=== PATIENT | male | born 1995 | race Caucasian/White ===

== ENCOUNTER → 2020-05-30 12:56 | Outpatient (BNVA) | payer BC, SELFPAY | PROVIDERS: PCP Internal Medicine; Visit Provider Urology | DX: Z76.89 Persons encountering health services in other specified circumstances (principal) ==

== ENCOUNTER 2023-06-22 08:01 | Outpatient (AMB) | payer BC, SELFPAY ==
--- NOTE | 2023-06-22 08:13 | MHC.PC.OV ---
Vital Signs 06/22/23 08:15 Height 5 ft 9 in Weight 174 lb BMI 25.7 BP 122/74 Blood Pressure Location Rt brachial Position Sitting Pulse 74 Pulse Source Pulse Oximeter Pulse Oximetry (%) 97 Oxygen Delivery Method Room Air Intake Visit Reasons: New patient-requesting physical Intake Note: pt is here for new patient, requesting physical. requesting referrals Rose Grower Required: No Accompanied by: Self / Same As Patient Allergies Sulfa (Sulfonamide Antibiotics) Allergy (Unknown, Verified 06/22/23 08:26) Hives Medication List - Last Reconciled 06/22/23 by GRACE Orellana No Known Home Meds Tobacco use date assessed: 06/22/23 Dental Screening Dental Screen Date: 06/22/23 Did you have a dental visit in the last 12 months?: Yes Did you have a dental problem in the last 6 months where you did not have access to dental care?: No Was dental information given to patient?: Patient has dentist HPI HPI Comments History of Present Illness Details Patient is a 28-year-old male here today to establish care and have his annual physical exam. He has a past medical history significant for Meniere's disease. He has a surgical history of bilateral wrist and shoulder repair. He has a chief complaint of diminished hearing in his right ear over the past 2 years. Denies any trauma to the area or any recent fevers or infections. He states that his hearing can get better or worse throughout the day. He also reports increasing episodes of numbness to his bilateral hands, specifically to his thumb 1st and 2nd finger. He states that this problem often gets worse over night, and often wakes him up every 2-3 hours. 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 He has tried using splints at night with little effect. He has had 1 COVID immunization shot 2 years prior. At the appointment today he is denying the annual influenza immunization and the COVID booster. 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 1. Little interest or pleasure in doing things: several days 2. Feeling down, depressed, or hopeless: several days 3. Trouble falling or staying asleep, or sleeping too much: several days 4. Feeling tired or having little energy: several days 5. Poor appetite or overeating: not at all 6. Feeling bad about yourself - or that you are a failure or have let yourself or your family down: more than half the days 7. Trouble concentrating on things, such as reading the newspaper or watching television: not at all 8. Moving or speaking so slowly that other people could have noticed. Or the opposite - being so fidgety or restless that you have been moving around a lot more than usual: not at all 9. Thoughts that you would be better off or of hurting yourself in some way: several days Total score: 7 Depression Screening Interpretation: Negative Depression Screening Done: Yes 93147 - PHQ-9 Billing: Yes Source: Developed by Drs. Sebastian Duff, Candice Mullins, Anmol Farris and colleagues, with an educational marquita from [employer]. Thrive Questionnaire Date Thrive assessed: 06/22/23 I am a: Patient What is your living situation today?: I have a steady place to live Within the past 12 months, did the food you bought not last and you didn't have the money to get more?: Never true Within the past 12 months, did you worry whether your food would run out before you got money to buy more?: Never true Do you have trouble paying for medicines?: No Do you have trouble getting transportation to medical appointments?: No Do you have trouble paying your heating and electricity bill?: No Do you have trouble taking care of your child, family member or friend?: No Do you have trouble with day-to-day activities such as bathing, preparing meals, shopping, managing finances, etc.?: No Are you currently unemployed and looking for a job?: No Are you interested in more education?: No Please select the resources that you would like help with: None Currently or been in a relationship where the following occur: no concerns reported AUDIT C Alcohol Use Questionnaire (AUDIT-C) 1. How often do you have a drink containing alcohol?: Monthly or less 2. How many drinks containing alcohol do you have on a typical day when you are drinking?: 5 or 6 Total Score: 3 KYA-7 AMB Questionnaire KYA-7 Date KYA - 7 assessed: 06/22/23 Feeling nervous, anxious, or on edge: 1 = Several days Not being able to stop or control worryin = Not at all Worrying too much about different things: 1 = Several days Trouble relaxin = Several days Being so restless that it is hard to sit still: 1 = Several days Becoming easily annoyed or irritable: 2 = More than half the days Feeling afraid as if something awful might happen: 0 = Not at all Total KYA-7 score (0-4 normal; 5-9 mild; 10-14 moderate; 15-21 severe): 6 Source: Developed by Drs. Sebastian Duff, Candice Mullins, Anmol Farris and colleagues, with an educational marquita from [employer]. KYA-7 Assessment Billing KYA-7 Assessment Tool: KYA-7 Assessment 73645 Review of Systems Const Details: Constitutional : No Weight loss, No Fever, No Chills, Admits decreased energy. ENT/Mouth : No sore throat, No Rhinorrhea. Admits diminished hearing in right ear. Eyes: No Eye Pain, No Swelling, No Redness Cardiovascular : No Chest Pain, No SOB, No Dyspnea on Exertion, No Orthopnea, No Edema, No Palpitations Respiratory : No Cough, No Sputum, No Wheezing Gastrointestinal : No Nausea, No Vomiting, No Diarrhea, No Constipation, No abdominal Pain, No Hematochezia, No Melena Genitourinary : No Dysuria, No Urinary Frequency, No Hematuria, Musculoskeletal : No joint pain, No Myalgias, No Joint Swelling Skin : No Skin Lesions, No rash Neuro : No Weakness, Admits occasional numbness to bilateral hands during the day and often when sleeping, No Dizziness, No Headache Psych : No Anxiety/Panic, No Depression Heme/Lymph: No Bruising, No Bleeding,No Lymphadenopathy Endocrine : No Polyuria, No Polydipsia All other systems reviewed and are negative Physical exam (Primary Care) Vital Signs: Vital signs have been reviewed and are stable. Depression Screening Interpretation: Negative Currently or been in a relationship where the following occur: no concerns reported Const Other: Appearance: Alert.? Oriented X3.? No acute distress.? Head: Normocephalic, atraumatic, no step-offs or deformities Eyes: Pupils equal, round and reactive to light.? ENT: Pharynx normal.?TM intact bilaterally. Neck: Normal inspection.? Neck supple.? CVS: Normal heart rate and rhythm.? Pulses normal.? Respiratory: No respiratory distress.? Breath sounds normal.? Abdomen: Soft and nontender.? Skin: Skin warm and dry.? Normal skin color.? Normal skin turgor.? Extremities: No lower extremity edema. 5/5 strength to bilateral upper and lower extremities. Crepitus to bilateral knees. Back: No midline tenderness, no C-spine tenderness, full range of motion, no CVA tenderness bilaterally Neuro: Oriented X 3.? No motor deficit. CN 2-12 intact. Positive Tineals sign. Psych: No SI/HI. General: cooperative and no acute distress Results Reviewed Results Reviewed: Will call patient with lab results Assessment and Plan Assessment & Plan (1) Encounter for routine adult physical exam with abnormal findings: Comment: Will order labs. CBC, CMP, lipid profile, TSH, T4, testosterone, UA, vitamin-D 3. Code(s): Z00.01 - Encounter for general adult medical examination with abnormal findings (2) Carpal tunnel syndrome on both sides: Comment: Patient has been educated to use splints at night to support his wrist to diminish episodes of numbness. He has been instructed at work to take breaks into use appropriate ergonomics. Will order nerve conduction testing. Code(s): G56.03 - Carpal tunnel syndrome, bilateral upper limbs (3) Decreased hearing of right ear: Comment: Will refer patient to speech and hearing center. History of Meniere's disease. Code(s): H91.91 - Unspecified hearing loss, right ear Orders: Orders Comprehensive Renick. Panel Fast Today Z00.01 - Encounter for general adult medical examination with abnormal findings Complete Blood Count Auto Diff Today Z00.01 - Encounter for general adult medical examination with abnormal findings Lipid Panel Today Z00.01 - Encounter for general adult medical examination with abnormal findings UA CC w/rflx Micro + Cult Today Z00.01 - Encounter for general adult medical examination with abnormal findings NE nerve conduction velocity Today G56.03 - Carpal tunnel syndrome, bilateral upper limbs Vitamin D 25-OH (D2 and D3) Today Z00.01 - Encounter for general adult medical examination with abnormal findings TSH reflex Free T4 Today Z00.01 - Encounter for general adult medical examination with abnormal findings Testosterone, Free/Total Today Z00.01 - Encounter for general adult medical examination with abnormal findings Referrals Speech and Hearing Referral H91.91 - Unspecified hearing loss, right ear Patient Instructions: Patient declined in office flu immunization. States he will not be getting this year's COVID immunization. Coding Level of Care Code New Pt Level 4 (58946) Diagnoses Encounter for routine adult physical exam with abnormal findings Z00. Carpal tunnel syndrome on both sides G56.03 Decreased hearing of right ear H91.91 Additional Codes KYA-7 Assessment Billing - KYA-7 Assessment Tool: KYA-7 Assessment 15342 ([id number]) Time Spent (min) 30
[2023-06-22 08:15] VITALS: BP 122/74; PULSE 74; O2SAT 97; BMI 25.7
== END 2023-06-22 08:56 | disposition home or self-care (01) ==
PROVIDERS: Visit Provider Nurse Practitioner Primary Care
DX: Z00.01 Encounter for general adult medical examination with abnormal findings (principal); G56.03 Carpal tunnel syndrome, bilateral upper limbs; H91.91 Unspecified hearing loss, right ear
CPT/HCPCS: 99204

== ENCOUNTER 2023-06-22 08:51 | Outpatient (REF) | payer BC, SELFPAY ==
[2023-06-22 11:24] LABS: MANUAL DIFF FLAG NO
[2023-06-22 11:34] LABS: Appearance Urine Clear; Color Urine Yellow; Glucose Urine UA Negative (Negative); Leukocyte Esterase Urine Negative (Negative); Nitrite Urine Negative (Negative); PH 6.5 (5.0-9.0); Specific Gravity - Urine 1.025 (1.005-1.025); Urine Blood Negative (Negative); Urine Ketones Negative (Negative); Urine Protein Negative (Neg-Trace)
[2023-06-22 11:36] LABS: Basophils Percent Auto 0.5 % (0-2); Eosinophils Absolute Auto 0.1 X10*3/uL (0.0-0.4); Eosinophils Percent Auto 2.2 % (0-4); Hematocrit 46.7 % (42.0-52.0); Hemoglobin 15.8 g/dl (14.0-18.0); Imm Gran Abs Auto 0.02 X10*3/uL (0.00-0.03); Imm Gran Pct Auto 0.3 % (0.0-0.4); Lymphocytes Absolute Auto 1.5 X10*3/uL (1.2-4.9); Lymphocytes Percent Auto 25.8 % (20-40); Mean Corpuscular HGB Conc 33.8 g/dl (31.0-36.0); Mean Corpuscular Hemoglobin 29.7 pg (27.0-33.0); Mean Corpuscular Volume 87.8 fL (80.0-98.0); Mean Platelet Volume 9.3 fL (9.4-12.4); Monocytes Absolute Auto 0.6 X10*3/uL (0.1-1.2); Monocytes Percent Auto 10.2 % (2-11); Neutrophils Absolute Auto 3.5 x10*3/uL (2.0-8.3); Platelet Count 237 X10*3/uL (160-400); Red Blood Count 5.32 X10*6/uL (4.60-5.80); White Blood Count 5.8 X10*3/uL (4.8-10.8)
[2023-06-22 11:54] LABS: Alanine Aminotransferase 30 U/L (0-40); Albumin Level 4.5 g/dL (3.5-5.0); Alkaline Phosphatase 44 U/L (39-117); Anion Gap 12 (12-20); Aspartate Amino Transferase 47 U/L (5-37); Bilirubin Total 0.6 mg/dL (0.0-1.0); Blood Urea Nitrogen 15 mg/dL (9-16); Calcium 9.3 mg/dL (8.4-10.2); Carbon Dioxide 26 mmol/L (22-29); Chloride 107 mmol/L (96-108); Cholesterol 130 mg/dL (<200); Estimated Glomerular Filt Rate > 60; Glucose Fasting 93 mg/dL (60-99); HDL Cholesterol 46 mg/dL (>40); LDL Cholesterol Calculated 77 mg/dL (<100); Potassium 4.4 mmol/L (3.3-5.1); Sodium 141 mmol/L (135-145); Total Protein 7.2 g/dL (6.5-8.0); Triglycerides 35 mg/dL (<150)
[2023-06-22 12:20] LABS: TSH reflex Free T4 0.55 uIU/mL (0.32-4.0)
[2023-06-26 16:08] LABS: Vitamin D 25-OH, D2 <4 ng/mL; Vitamin D 25-OH, D3 26 ng/mL; Vitamin D 25-OH, Total 26 ng/mL (30-100)
[2023-06-27 13:58] LABS: Testosterone, Free 76.1 pg/mL (35.0-155.0); Testosterone, Total 366 ng/dL (250-1100)
== END 2023-06-22 08:52 | disposition home or self-care (01) ==
LOC: HO.HMGCLDS 08:51
PROVIDERS: PCP Nurse Practitioner Primary Care; Visit Provider Nurse Practitioner Primary Care
DX: Z00.01 Encounter for general adult medical examination with abnormal findings (principal)
CPT/HCPCS: 36415; 80053; 80061; 81003; 82306; 84402; 84403; 84443; 85025

== ENCOUNTER 2023-08-10 13:53 | Outpatient (REF) | payer BC, SELFPAY ==
--- NOTE | 2023-08-10 13:56 | EMG_ITS ---
Chief complaint: Hand numbness especially at night Reason for referral: Evaluate for Carpal Tunnel Syndrome Referred by: Destin Sosa Procedure done: Bilateral upper extremities NCS/EMG Precautions and/or limitations: None The limb temperature was monitored continuously and remained between 32-36 degrees C during the performance of the NCS. Nerve Conduction Studies Anti Sensory Summary Table ?Stim Site NR Onset (ms) Norm Onset (ms) Peak (ms) Norm Peak (ms) O-P Amp (?V) Norm O-P Amp Site1 Site2 Delta-0 (ms) Dist (cm) Yobani (m/s) Norm Yobani (m/s) Left Median Anti Sensory (2nd Digit) Wrist NR <3.6 >10 Wrist 2nd Digit 14.0 Right Median Anti Sensory (2nd Digit) Wrist ? 3.2 4.5 <3.6 14.7 >10 Wrist 2nd Digit 3.2 14.0 44 Right Radial Anti Sensory (Thumb) Forearm ? 1.7 2.1 <3.1 21.7 Forearm Thumb 1.7 0.0 Left Ulnar Anti Sensory (5th Digit) Wrist ? 2.2 2.7 <3.7 35.6 >15.0 Wrist 5th Digit 2.2 14.0 64 Right Ulnar Anti Sensory (5th Digit) Wrist ? 1.8 2.6 <3.7 32.9 >15.0 Wrist 5th Digit 1.8 14.0 78 Motor Summary Table ?Stim Site NR Onset (ms) Norm Onset (ms) O-P Amp (mV) Norm O-P Amp iAmp (mV) Amp (1st) (%) Site1 Site2 Delta-0 (ms) Dist (cm) Yobani (m/s) Norm Yobani (m/s) Left Median Motor (Abd Poll Brev) Wrist ? 7.0 <3.9 5.2 >4.5 6.4 100.0 Elbow Wrist 4.4 22.0 50 >45 Elbow ? 11.4 3.2 4.0 61.5 Right Median Motor (Abd Poll Brev) Wrist ? 4.4 <3.9 9.8 >4.5 11.4 100.0 Elbow Wrist 4.0 22.0 55 >45 Elbow ? 8.4 9.2 10.8 93.9 Left Ulnar Motor (Abd Dig Minimi) Wrist ? 2.7 <3.0 7.4 >5 9.1 100.0 B Elbow Wrist 3.2 20.0 63 >45 B Elbow ? 5.9 6.8 9.0 91.9 A Elbow B Elbow 1.4 10.0 71 >45 A Elbow ? 7.3 8.0 10.7 108.1 Right Ulnar Motor (Abd Dig Minimi) Wrist ? 2.5 <3.0 10.7 >5 12.9 100.0 B Elbow Wrist 3.2 19.0 59 >45 B Elbow ? 5.7 10.8 13.5 100.9 A Elbow B Elbow 1.1 10.0 91 >45 A Elbow ? 6.8 10.6 13.4 99.1 EMG ?Side Muscle Nerve Root Ins Act Fibs Psw Amp Dur Poly Recrt Int Pat Comment Right 1stDorInt Ulnar C8-T1 Nml Nml Nml Nml Nml 0 Nml Complete Right FlexCarRad Median C6-7 Nml Nml Nml Nml Nml 0 Nml Complete Right Biceps Musculocut C5-6 Nml Nml Nml Nml Nml 0 Nml Complete Right Triceps Radial C6-7-8 Nml Nml Nml Nml Nml 0 Nml Complete Right Deltoid Axillary C5-6 Nml Nml Nml Nml Nml 0 Nml Complete Left 1stDorInt Ulnar C8-T1 Nml Nml Nml Nml Nml 0 Nml Complete Left FlexCarRad Median C6-7 Nml Nml Nml Nml Nml 0 Nml Complete Left Biceps Musculocut C5-6 Nml Nml Nml Nml Nml 0 Nml Complete Left Triceps Radial C6-7-8 Nml Nml Nml Nml Nml 0 Nml Complete Left Deltoid Axillary C5-6 Nml Nml Nml Nml Nml 0 Nml Complete FINDINGS: Bilateral median motor nerves showed prolonged distal latency, normal amplitude and normal conduction velocity. Right median sensory nerve showed prolonged peak latency. Left median sensory nerve showed no response. All other nerves tested were within normal. Concentric needle EMG was performed in selected muscles of the bilateral upper extremity. Study did not reveal signs of electric abnormalities as shown in the table below. IMPRESSION: 1. This is an abnormal study. 2. There is electrodiagnostic evidence for bilateral moderate-severe median neuropathy at the wrist, left worse than right, consistent with carpal tunnel syndrome. 3. There is no electrodiagnostic evidence for ulnar neuropathy, brachial plexopathy, or cervical radiculopathy. Thank you for your kind referral. Martina Wynne MD, MICHAEL Board Certified, [place] [employer] and [employer] (ABPMR) Board Certified, [place] Board [employer] Electrodiagnostic Medicine (ABEM) CODIN 23010 x 2 MTDD
== END 2023-08-10 13:54 | disposition home or self-care (01) ==
LOC: HO.NEURO 13:53
PROVIDERS: PCP Nurse Practitioner Primary Care; Visit Provider Nurse Practitioner Primary Care
DX: G56.03 Carpal tunnel syndrome, bilateral upper limbs (principal)
CPT/HCPCS: 95886; 95911

== ENCOUNTER → 2023-08-10 13:56 | Outpatient (BNV) | payer BC, SELFPAY | PROVIDERS: PCP Nurse Practitioner Primary Care; Visit Provider Physical Medicine & Rehabilitation | DX: G56.03 Carpal tunnel syndrome, bilateral upper limbs (principal); G56.13 Other lesions of median nerve, bilateral upper limbs | CPT/HCPCS: 95886; 95911 ==

== ENCOUNTER 2023-09-16 10:15 | Outpatient (REF) | payer BC, SELFPAY | END 2023-09-16 10:16 | disposition home or self-care (01) | LOC: HO.SH 10:15 | PROVIDERS: Visit Provider Nurse Practitioner Primary Care | DX: H90.41 Sensorineural hearing loss, unilateral, right ear, with unrestricted hearing on the contralateral side (principal) | CPT/HCPCS: 92557; 92567; 92588 ==

== ENCOUNTER 2023-12-23 11:51 | Outpatient (AMB) | payer BC, SELFPAY ==
--- NOTE | 2023-12-23 11:58 | A.OFFPC_ITS ---
Vital Signs 12/23/23 12:02 Height 5 ft 9 in Weight 165 lb BMI 24.4 BP 96/56 L Blood Pressure Location Lt brachial Position Sitting Pulse 58 Pulse Source Pulse Oximeter Pulse Oximetry (%) 98 Oxygen Delivery Method Room Air Intake Visit Reasons: Follow up Intake Note: pt is here for f/u carpal tunnel syndrome Allergies Sulfa (Sulfonamide Antibiotics) Allergy (Unknown, Verified 12/23/23 12:24) Hives Medication List - Last Reconciled 12/23/23 by GRACE Orellana No Known Home Meds Tobacco use date assessed: 12/23/23 Dental Screening Dental Screen Date: 12/23/23 Did you have a dental visit in the last 12 months?: No Did you have a dental problem in the last 6 months where you did not have access to dental care?: No Was dental information given to patient?: No HPI HPI Comments History of Present Illness Details Patient is a 28-year-old male in for follow-up. Patient has carpal tunnel corrective surgery on his bilateral rest 2 months prior to this appointment with good effect. He reports that the numbness that he was feeling in his bilateral hands has resolved. Patient does have vitamin-D deficiency, I have been taking 2000 units of vitamin D3. Will redraw today. Patient also had elevated AST values was educated he should stop taking a pre workout supplement that he was utilizing, will redraw labs including CMP. Patient does have history of Meniere's disease. Would like to reestablish care with ear nose throat. Denies recent episodes of dizziness. Will refer. 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 1. Little interest or pleasure in doing things: not at all 2. Feeling down, depressed, or hopeless: not at all 3. Trouble falling or staying asleep, or sleeping too much: not at all 4. Feeling tired or having little energy: not at all 5. Poor appetite or overeating: not at all 6. Feeling bad about yourself - or that you are a failure or have let yourself or your family down: not at all 7. Trouble concentrating on things, such as reading the newspaper or watching television: not at all 8. Moving or speaking so slowly that other people could have noticed. Or the opposite - being so fidgety or restless that you have been moving around a lot more than usual: not at all 9. Thoughts that you would be better off or of hurting yourself in some way: not at all Total score: 0 Source: Developed by Drs. Sebastian Duff, Candice Mullins, Anmol Farris and colleagues, with an educational marquita from [employer]. Thrive Questionnaire Date Thrive assessed: 12/23/23 I am a: Patient What is your living situation today?: I have a steady place to live Within the past 12 months, did the food you bought not last and you didn't have the money to get more?: Never true Within the past 12 months, did you worry whether your food would run out before you got money to buy more?: Never true Do you have trouble paying for medicines?: No Do you have trouble getting transportation to medical appointments?: No Do you have trouble paying your heating and electricity bill?: No Do you have trouble taking care of your child, family member or friend?: No Do you have trouble with day-to-day activities such as bathing, preparing meals, shopping, managing finances, etc.?: No Are you currently unemployed and looking for a job?: No Are you interested in more education?: No Please select the resources that you would like help with: None Currently or been in a relationship where the following occur: no concerns reported THRIVE Score: 0 AUDIT C Alcohol Use Questionnaire (AUDIT-C) 1. How often do you have a drink containing alcohol?: 2-4 times a month 2. How many drinks containing alcohol do you have on a typical day when you are drinking?: 1 or 2 3. How often do you have six or more drinks on one occasion?: Never Total Score: 2 KYA-7 AMB Questionnaire KYA-7 Date KYA - 7 assessed: 06/22/23 Source: Developed by Drs. Sebastian Duff, Candice Mullins, Anmol Farris and colleagues, with an educational marquita from [employer]. Review of Systems Const All systems reviewed & are unremarkable except as noted in HPI and below Physical exam (Primary Care) Vital Signs: Last Vital Signs Pulse 58 12/23/23 12:02 BP 96/56 L 12/23/23 12:02 Pulse Ox 98 12/23/23 12:02 Oxygen Delivery Method Room Air 12/23/23 12:02 Care Plan Goal for BP management: Patient reports he did not eat today in anticipation of having to get fasting labs. Will take blood pressure at home. BMI result Body Mass Index 24.4 Tobacco/Smoking Status: Tobacco use Status Tobacco use date assessed 12/23/23 12/23/23 12:06 Patient Tobacco Use Status Former Tobacco user 12/23/23 11:59 e-Cigarette/Vaping Use Never Used 12/23/23 11:59 PHQ-9: PHQ-9 Score PHQ-9: Total score 0 12/23/23 12:06 Thrive Assessment: Date of Thrive Assessment Date Thrive assessed 12/23/23 12/23/23 12:06 Currently or been in a relationship where the following occur: no concerns reported Const Other: Appearance: Alert.? Oriented X3.? No acute distress.? Head: Normocephalic. Eyes: Pupils equal, round and reactive to light.? ENT: Pharynx normal.?TM intact and pearly farmer. Neck: Normal inspection.? Neck supple.? CVS: Normal heart rate and rhythm.? Pulses normal.? Respiratory: No respiratory distress.? Breath sounds normal.? Neuro: Oriented X 3.? No motor deficit.? No sensory deficit. CN 2-12 intact Assessment and Plan Assessment & Plan (1) History of Meniere's disease: Comment: Will refer to Ear Nose Throat. Patient did recently see speech and hearing has diminished hearing in his right ear. Code(s): Z86.69 - Personal history of other diseases of the nervous system and sense organs (2) Vitamin D deficiency: Comment: Will redraw labs today. Code(s): E55.9 - Vitamin D deficiency, unspecified Orders: Orders Vitamin D 25-OH (D2 and D3) Today Z13.21 - Encounter for screening for nutritional disorder Complete Blood Count Auto Diff Today Z13.0 - Encounter for screening for diseases of the blood and blood-forming organs and certain disorders involving the immune mechanism Comprehensive Met. Panel Today Z13.0 - Encounter for screening for diseases of the blood and blood-forming organs and certain disorders involving the immune mechanism Referrals Ear/Nose/Throat Referral Z86.69 - Personal history of other diseases of the nervous system and sense organs Coding Level of Care Code Est Pt Level 3 (73149) Diagnoses History of Meniere's disease Z86.69 Vitamin D deficiency E55.9 Time Spent (min) 25
[2023-12-23 12:02] VITALS: BP 96/56; PULSE 58; O2SAT 98; BMI 24.4
== END 2023-12-23 12:43 | disposition home or self-care (01) ==
PROVIDERS: PCP Nurse Practitioner Primary Care; Visit Provider Nurse Practitioner Primary Care
DX: Z86.69 Personal history of other diseases of the nervous system and sense organs (principal); E55.9 Vitamin D deficiency, unspecified
CPT/HCPCS: 99213

== ENCOUNTER 2023-12-23 12:39 | Outpatient (REF) | payer BC, SELFPAY ==
[2023-12-23 16:09] LABS: MANUAL DIFF FLAG NO
[2023-12-23 16:15] LABS: Basophils Percent Auto 0.7 % (0-2); Eosinophils Absolute Auto 0.1 X10*3/uL (0.0-0.4); Eosinophils Percent Auto 2.1 % (0-4); Hematocrit 41.4 % (42.0-52.0); Hemoglobin 14.4 g/dl (14.0-18.0); Imm Gran Abs Auto 0.01 X10*3/uL (0.00-0.03); Imm Gran Pct Auto 0.2 % (0.0-0.4); Lymphocytes Absolute Auto 1.8 X10*3/uL (1.2-4.9); Lymphocytes Percent Auto 29.3 % (20-40); Mean Corpuscular HGB Conc 34.8 g/dl (31.0-36.0); Mean Corpuscular Hemoglobin 30.5 pg (27.0-33.0); Mean Corpuscular Volume 87.7 fL (80.0-98.0); Mean Platelet Volume 9.7 fL (9.4-12.4); Monocytes Absolute Auto 0.6 X10*3/uL (0.1-1.2); Monocytes Percent Auto 9.9 % (2-11); Neutrophils Absolute Auto 3.6 x10*3/uL (2.0-8.3); Neutrophils Percent Auto 57.8 % (45-73); Platelet Count 217 X10*3/uL (160-400); Red Blood Count 4.72 X10*6/uL (4.60-5.80); Red Cell Distribution Width 13.2 % (11.0-16.0); White Blood Count 6.2 X10*3/uL (4.8-10.8)
[2023-12-23 16:42] LABS: Alanine Aminotransferase 17 U/L (0-40); Albumin Level 4.5 g/dL (3.5-5.0); Alkaline Phosphatase 47 U/L (39-117); Anion Gap 11 (12-20); Aspartate Amino Transferase 26 U/L (5-37); Bilirubin Total 0.7 mg/dL (0.0-1.0); Blood Urea Nitrogen 13 mg/dL (9-16); Carbon Dioxide 27 mmol/L (22-29); Chloride 105 mmol/L (96-108); Estimated Glomerular Filt Rate > 60; Glucose Random 84 mg/dL (60-115); Sodium 139 mmol/L (135-145); Total Protein 6.9 g/dL (6.5-8.0)
[2023-12-28 13:52] LABS: Vitamin D 25-OH, D2 <4 ng/mL; Vitamin D 25-OH, D3 31 ng/mL; Vitamin D 25-OH, Total 31 ng/mL (30-100)
== END 2023-12-23 12:40 | disposition home or self-care (01) ==
LOC: HO.HMGCLDS 12:39
PROVIDERS: PCP Nurse Practitioner Primary Care; Visit Provider Nurse Practitioner Primary Care
DX: Z13.21 Encounter for screening for nutritional disorder (principal); Z13.0 Encounter for screening for diseases of the blood and blood-forming organs and certain disorders involving the immune mechanism
CPT/HCPCS: 36415; 80053; 82306; 85025

== ENCOUNTER 2024-06-25 08:07 | Outpatient (AMB) | payer BC, SELFPAY ==
--- NOTE | 2024-06-25 08:12 | A.OFFPC_ITS ---
Vital Signs 06/25/24 08:14 Height 5 ft 9 in Weight 172 lb BMI 25.4 BP 102/62 Blood Pressure Location Rt brachial Position Sitting Pulse 66 Pulse Source Pulse Oximeter Pulse Oximetry (%) 97 Oxygen Delivery Method Room Air Intake Visit Reasons: transfer from [facility] Intake Note: pt is here for est care, transfer from [facility] Allergies Sulfa (Sulfonamide Antibiotics) Allergy (Unknown, Verified 06/25/24 08:14) Hives Medication List - Last Reconciled 06/25/24 by ITZEL Kwon No Known Home Meds Tobacco use date assessed: 12/23/23 Dental Screening Dental Screen Date: 12/23/23 HPI transfer from [facility] HPI Details Chief Complaint - Persistent fullness in right ear with history of dizziness and nausea. History of Present Illness The patient is a 29-year-old male presenting with Meniere's Disease, originally diagnosed by Dr. Walker, an ENT specialist, approximately five years ago. The patient initially experienced acute episodes of dizziness, nausea, and collapse during a visit to a museum in [place], [place]. Subsequent management included dietary advice to limit sodium intake and increase water consumption, which effectively alleviated dizziness and nausea. Despite significant improvement, the patient continues to experience a sensation of fullness localized to the right ear. A previous trial of diuretics was discussed as a therapeutic strategy, but the patient exhibits a preference for non-pharmacologic management. The patient seeks further evaluation and potential procedural interventions for ongoing symptoms. 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 - Reports variable smoking habits; recejeannine carbone stopped smoking for a month before resuming temporarily. - Consumes energy drinks, typically one per day, formerly heavy user. Health Maintenance Review of Systems - Ears: Reports persistent fullness in r ight ear. - General: Denies current dizziness or n ausea. Physical Exam General: Cooperative, healthy appearing, comfortable, no acute distress and well developed Orientation: Patient oriented x3 Limitations: No limitations Head: Normal to inspection Ears: TM intact, no trauma noted Nose: Normal external nose present Face and sinus: Normal facial exam Eyes: Appearance normal, both eyes and all related structures Neck: Normal visual inspection and Yes full ROM Respiratory: Normal respiratory effort and able to speak in complete sentences. Clear to auscultation bilaterally Cardiovascular: Regular rate and rhythm. Normal S1 and S2 GI: Normal to inspection. Soft to palpation and nontender Skin: No rashes or lesions noted Neuro: Patient oriented x3 Extremities: Normal to inspection Results Plan - Referral to ENT specialist Dr. Anival garvin or expertise in managing Meniere's Disease. - Encourage continuation of current sodi um reduction and increased water intake. - Advise on limiting smoking and energy drink consumption for overall health benefit. - Plan for follow-up in six months to re assess condition and monitor for any changes. Patient was informed and verbally consented to the use of an ambient scribe for clinic note documentation during this visit. Discussion Notes I discussed with the patient the nature of Meniere's Disease and the rationale behind the current management approach focusing on sodium reduction and hydration. The patient has been responsive to dietary measures, which underscores their importance. I explained that while diuretics can be utilized, careful monitoring is warranted due to patient preference for minimal medication use. I stressed the importance of consulting with Dr. Florian given his specific expertise in Meniere's Disease and potential procedural intervention options, though none are currently deemed necessary. I encouraged continued vigilance in optimizing diet and lifestyle factors that could mitigate symptom exacerbation. We also discussed the importance of a comprehensive follow-up to assess both the effectiveness of current strategies and any need for therapeutic adjustment. Patient Instructions - Continue with a low sodium diet and dr ink plenty of water daily. - Limit the use of energy drinks and sherrie ntain low caffeine intake. - Apply caution with smoking and aim for complete cessation. - Follow up with ENT specialist Dr. Oc paez as scheduled. - Return for labs and physical examinati on in six months or sooner if symptoms worsen. 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 1. Little interest or pleasure in doing things: not at all 2. Feeling down, depressed, or hopeless: several days 3. Trouble falling or staying asleep, or sleeping too much: not at all 4. Feeling tired or having little energy: several days 5. Poor appetite or overeating: not at all 6. Feeling bad about yourself - or that you are a failure or have let yourself or your family down: several days 7. Trouble concentrating on things, such as reading the newspaper or watching television: not at all 8. Moving or speaking so slowly that other people could have noticed. Or the opposite - being so fidgety or restless that you have been moving around a lot more than usual: not at all 9. Thoughts that you would be better off or of hurting yourself in some way: not at all Total score: 3 Depression Screening Interpretation: Negative Depression Screening Done: Yes 96260 - PHQ-9 Billing: Yes Source: Developed by Drs. Sebastian Duff, Candice Mullins, Anmol Farris and colleagues, with an educational marquita from [employer]. Thrive Questionnaire Date Thrive assessed: 06/25/24 I am a: Patient What is your living situation today?: I have a steady place to live Within the past 12 months, did the food you bought not last and you didn't have the money to get more?: I choose not to answer this question Within the past 12 months, did you worry whether your food would run out before you got money to buy more?: Sometimes True Do you have trouble paying for medicines?: No Do you have trouble getting transportation to medical appointments?: No Do you have trouble paying your heating and electricity bill?: No Do you have trouble taking care of your child, family member or friend?: No Do you have trouble with day-to-day activities such as bathing, preparing meals, shopping, managing finances, etc.?: No Are you currently unemployed and looking for a job?: No Are you interested in more education?: Yes Please select the resources that you would like help with: None Currently or been in a relationship where the following occur: No concerns reported THRIVE Score: 1 AUDIT C Alcohol Use Questionnaire (AUDIT-C) 1. How often do you have a drink containing alcohol?: Monthly or less 2. How many drinks containing alcohol do you have on a typical day when you are drinking?: 3 or 4 3. How often do you have six or more drinks on one occasion?: Less than monthly Total Score: 3 Score Reviewed/Action Taken: Yes KYA-7 AMB Questionnaire KYA-7 Date KYA - 7 assessed: 06/25/24 Feeling nervous, anxious, or on edge: 0 = Not at all Not being able to stop or control worryin = Not at all Worrying too much about different things: 1 = Several days Trouble relaxin = Not at all Being so restless that it is hard to sit still: 0 = Not at all Becoming easily annoyed or irritable: 2 = More than half the days Feeling afraid as if something awful might happen: 0 = Not at all Total KYA-7 score (0-4 normal; 5-9 mild; 10-14 moderate; 15-21 severe): 3 Source: Developed by Drs. Sebastian Duff, Candice Mullins, Anmol Farris and colleagues, with an educational marquita from [employer]. KYA-7 Assessment Billing KYA-7 Assessment Tool: KYA-7 Assessment 03311 Physical exam (Primary Care) Vital Signs: Last Vital Signs Pulse 66 06/25/24 08:14 BP 102/62 06/25/24 08:14 Pulse Ox 97 06/25/24 08:14 Oxygen Delivery Method Room Air 06/25/24 08:14 BMI result Body Mass Index 25.4 Tobacco/Smoking Status: Tobacco use Status Tobacco use date assessed 12/23/23 06/25/24 08:13 Patient Tobacco Use Status Former Tobacco user 06/25/24 08:13 e-Cigarette/Vaping Use Never Used 06/25/24 08:13 PHQ-9: PHQ-9 Score PHQ-9: Total score 3 06/25/24 08:15 Depression Screening Interpretation: Negative Thrive Assessment: Date of Thrive Assessment Date Thrive assessed 06/25/24 06/25/24 08:15 Currently or been in a relationship where the following occur: No concerns reported Const General: cooperative, healthy appearing, comfortable, no acute distress and well developed Resp Effort & Inspection: normal respiratory effort Cardio Rate: regular rate Rhythm: regular rhythm Heart sounds: S1 normal heart sound present, S2 normal heart sound present and no murmurs Psych Appearance: grossly normal Mental Status: mental status grossly normal Speech and movement: Normal speech and movement present Affect: normal affect Attitude: cooperative Thought process: Normal thought process present Thought content: Normal thought content present Insight: Good insight present (Psych) Judgement: Good judgement present (Psych) Coding Level of Care Code Est Pt Level 3 (16017) Diagnoses History of Meniere's disease Z86.69 Additional Codes KYA-7 Assessment Billing - KYA-7 Assessment Tool: KYA-7 Assessment 51462 ([id number]) PHQ-9 - 84614 - PHQ-9 Billing: Yes ([id number]) Assessment & Plan Assessment & Plan (1) History of Meniere's disease: Comment: Will refer to Ear Nose Throat. Patient did recently see speech and hearing has diminished hearing in his right ear. Code(s): Z86.69 - Personal history of other diseases of the nervous system and sense organs Category: Medical Plan . Orders: Orders Complete Blood Count Auto Diff Today Z86.69 - Personal history of other diseases of the nervous system and sense organs UA CC w/rflx Micro + Cult Today Z86.69 - Personal history of other diseases of the nervous system and sense organs Lipid Panel Today Z86.69 - Personal history of other diseases of the nervous system and sense organs Comprehensive [place]. Panel Fast Today Z86.69 - Personal history of other diseases of the nervous system and sense organs TSH reflex Free T4 Today Z86.69 - Personal history of other diseases of the nervous system and sense organs Referrals Ear/Nose/Throat Referral Z86.69 - Personal history of other diseases of the nervous system and sense organs
[2024-06-25 08:14] VITALS: BP 102/62; PULSE 66; O2SAT 97; BMI 25.4
== END 2024-06-25 08:38 | disposition home or self-care (01) ==
PROVIDERS: PCP Nurse Practitioner Family; Visit Provider Nurse Practitioner Family
DX: Z86.69 Personal history of other diseases of the nervous system and sense organs (principal)

== ENCOUNTER → 2024-06-25 08:07 | Outpatient (BNVA) | payer BC, SELFPAY | PROVIDERS: PCP Nurse Practitioner Primary Care; Visit Provider Nurse Practitioner Family | DX: H93.91 Unspecified disorder of right ear (principal); Z86.69 Personal history of other diseases of the nervous system and sense organs | CPT/HCPCS: 96127 ==